=== PATIENT | male | born 1960 | race Caucasian/White ===

== ENCOUNTER 2019-08-29 01:16 | Emergency (ER) | payer BC ==
--- NOTE | 2019-08-29 03:51 | ER Document Report ---
ED Medical Screen (RME) - General Chief Complaint: Medical Clearance Stated Complaint: DETOX/[facility]ENT [facility] Notes: Apparently patient was at [facility] and was apparently had slow responses to questions of the staff there apparently had some "fecal incontine nce which patient denies but apparently did fall and hit his head and was sent in for medical clearance. Patient denies any complaints except a mild frontal headache TRAVEL OUTSIDE OF THE [place] IN LAST 30 DAYS: No - HPI Onset: Just prior to arrival Onset/Duration: Sudden. No: Gradual, Constant, Intermittent, Persistent, Waxing and waning, Better, Worse, Gone Quality of pain: Throbbing. denies: No pain, Achy, Burning, Cramping, Dull, Fullness, Pressure, Sharp, Stabbing, Other Severity: Mild Pain Level: 1 Associated Symptoms: denies: None, Abdominal pain, Allergy/hay fever, Body/muscle aches, Chest pain, Chills, Cough (productive), Cough (nonproductive), Diarrhea, Dizzy/lightheaded, Drooling, Dysuria, Earache, Fever, Headache, Hoarseness, Hurts to breath, Leg swelling, Nausea, Rhinorrhea, Shortness of breath, Sinus pain/drainage, Slow to respond, Sore throat, Sweating, Vaginal bleeding, Vomiting, Weakness, Other Exacerbated by: denies: Denies, Supine, Sitting, Standing, Movement, Walking, Coughing, Deep breathing, Food, Other - Related Data Frequency of alcohol use: Heavy Drug Abuse: None Allergies/Adverse Reactions: Iodine and Iodide Containing Produc Allergy (Verified 08/29/19 02:21) shellfish derived Allergy (Verified 08/29/19 02:21) Home Medications: none Past Medical History - Social History Chew tobacco use (# tins/day): No Frequency of alcohol use: binge drinker Drug Abuse: None Review of Systems - Review of Systems Constitutional: denies: No symptoms reported, See HPI, Chills, Diaphoresis, Fever, Malaise, Weakness, Other, Weight gain, Weight loss, Recent illness EENT: denies: No symptoms reported, See HPI, Eye pain, Eye discharge, Blurred vision, Tearing, Double vision, Ear pain, Ear discharge, Nose pain, Nose congestion, Nose discharge, Sinus pressure, Sinus discharge, Throat pain, Difficulty swallowing, Throat swelling, Mouth pain, Mouth swelling, Dental problem, Vertigo, Other Cardiovascular: denies: No symptoms reported, See HPI, Chest pain, Palpitations, Heart racing, Orthopnea, Dyspnea, Syncope, Dizziness, Lightheaded, Edema, Other, Paroxysmal Nocturnal Dysp Respiratory: denies: No symptoms reported, See HPI, Cough, Hurts to breathe, Hemoptysis, Short of breath, Sputum, Stridor, Wheezing, Other Gastrointestinal: denies: No symptoms reported, See HPI, Abdomen distended, Abdominal pain, Diarrhea, Nausea, Vomiting, Constipation, Blood streaked bowels, Poor appetite, Poor fluid intake, Blood in vomit, Black stools, Rectal bleeding, Last bowel movement, Fecal incontinence, Other Genitourinary: denies: No symptoms reported, See HPI, Burning, Dysuria, Discharge, Frequency, Flank pain, Hematuria, Incontinence, Pain, Urgency, Retention, Other Musculoskeletal: denies: No symptoms reported, See HPI, Back pain, Gout, Joint pain, Joint swelling, Muscle pain, Muscle stiffness, Neck pain, Deformity, Leg swelling, Ankle swelling, Other Neurological/Psychological: Headaches. denies: No symptoms reported, See HPI, Confusion, Dementia, Depression, Anxiety, Hallucinations, Sensory change, Homicidal ideation, Weakness, Gait changes, Loss of power, Paralysis, Seizure, Lost consciousness, Speech impairment, Numbness, Suicidal ideation, Tingling, Tremor, Other -: Yes All other systems reviewed and negative Physical Exam - Vital signs Vitals: Temp Pulse BP 97.5 F 87 145/85 H 08/29/19 01:24 08/29/19 01:24 08/29/19 01:24 Notes: PHYSICAL EXAMINATION: GENERAL: Well-appearing, well-nourished and in no acute distress. HEAD: Mild trauma to the frontal area of his scalp no ecchymosis noted. EYES: Pupils equal round and reactive to light, extraocular movements intact, sclera anicteric, conjunctiva are normal. ENT: nares patent, oropharynx clear without exudates. Moist mucous membranes. NECK: Normal range of motion, supple without lymphadenopathy LUNGS: Breath sounds clear to auscultation bilaterally and equal. No wheezes rales or rhonchi. HEART: Regular rate and rhythm without murmurs ABDOMEN: Soft, nontender, normoactive bowel sounds. No guarding, no rebound. No masses appreciated. EXTREMITIES: Normal range of motion, no pitting or edema. No cyanosis. NEUROLOGICAL: No focal neurological deficits. Moves all extremities spontaneously and on command. Patient does have a mild tremor when his hands are held up as he apparently is in detox from alcohol PSYCH: Normal mood, normal affect. SKIN: Warm, Dry, normal turgor, no rashes or lesions noted. Course - Vital Signs Vital signs: Temp Pulse Resp BP Pulse Ox 97.5 F 87 145/85 H 08/29/19 01:24 08/29/19 01:24 08/29/19 01:24 - Diagnostic Test Radiology reviewed: Image reviewed, Reports reviewed Doctor's Discharge - Discharge Clinical Impression: mild alcohol withdrawal Hematoma of scalp Qualifiers: Encounter type: initial encounter Qualified Code(s): S00.03XA - Contusion of scalp, initial encounter Condition: Good Disposition: OTHER Additional Instructions: Tylenol or Motrin for pain. Please proceed immediately to [facility] to continue with your alcohol detoxification. Return if worse
--- NOTE | 2019-08-29 05:35 | RADIOLOGY REPORT (SQ) ---
EXAM: CT head without IV contrast CLINICAL DATA: 59-year-old male with head injury, status post fall yesterday TECHNICAL DATA: Multiple axial CT images of the brain were performed followed by sagittal and coronal reconstructed images. The CT study is performed according to ALARA (as low as reasonably achievable) or ALARA/IMAGE GENTLY, with automatic adjustment of mA and/or kV according to patient size. Performed on: 08/29/2019 at 4:40 AM Comparisons: None. FINDINGS: There is no evidence of mass, acute mass effect or midline shift. There are no acute extra-axial fluid collections. There is no evidence of acute intracranial hemorrhage. The cerebral sulci and ventricles are normal in size and configuration. There are no focal abnormal areas of increased or decreased attenuation. There is trace mucosal thickening of the right maxillary sinus. The mastoid air cells are clear. The orbital contents are grossly unremarkable. No acute osseous abnormalities are identified. There is minimal left parietal scalp soft tissue swelling. IMPRESSION: 1. There is no evidence of acute intracranial pathology. 2. Minimal left parietal scalp soft tissue swelling.
[2019-08-29 07:43] VITALS: BP 125/72
== END 2019-08-29 07:44 | disposition other institution (70) ==
LOC: ER 01:16
DX: S00.03XA Contusion of scalp, initial encounter (principal); R15.9 Full incontinence of feces; F10.239 Alcohol dependence with withdrawal, unspecified; W19.XXXA Unspecified fall, initial encounter
CPT/HCPCS: 70450; 99285

== ENCOUNTER 2019-09-30 14:36 | Emergency (ER) | payer BC ==
[2019-09-30] MEDS ORDERED: NICOTINE 21 MG/24 HR PATCH.TD24 TD ONE (15:31)
--- NOTE | 2019-09-30 15:34 | ER Document Report ---
ED Medical Screen (RME) - General Chief Complaint: Alcohol Withdrawl Stated Complaint: ETOH Time Seen by Provider: 09/30/19 15:27 Notes: Patient is a 59-year-old male who presents to the emergency department for detox. Patient states that he went to [facility], but due to his blood alcohol level being so high, he was told to come here to the emergency department to be evaluated. He was referred to [facility] by his AA sponsor. Patient states that he d rinks at least 1 bottle of wine a day. He states that he drank a lot yesterday. His last drink was around 10:00 this morning. Patient also states that he smokes cigarettes. Exam: Patient smells of alcohol. I have greeted and performed a rapid initial assessment of this patient. A comprehensive ED assessment and evaluation of the patient, analysis of test results and completion of medical decision making process will be conducted by an additional ED providers. TRAVEL OUTSIDE OF THE [place] IN LAST 30 DAYS: No - Related Data Allergies/Adverse Reactions: Iodine and Iodide Containing Produc Allergy (Verified 09/30/19 15:25) shellfish derived Allergy (Verified 09/30/19 15:25) Past Medical History - Social History Chew tobacco use (# tins/day): Yes Frequency of alcohol use: Heavy Drug Abuse: None Physical Exam - Vital signs Vitals: Temp Pulse Resp BP Pulse Ox 98.0 F 100 18 150/79 H 95 09/30/19 14:45 09/30/19 14:45 09/30/19 14:45 09/30/19 14:45 09/30/19 14:45 Course - Vital Signs Vital signs: Temp Pulse Resp BP Pulse Ox 98.0 F 100 18 150/79 H 95 09/30/19 14:45 09/30/19 14:45 09/30/19 14:45 09/30/19 14:45 09/30/19 14:45
[2019-09-30 18:00] LABS: HEMATOCRIT 46.1 % (37.9-51.0); HEMOGLOBIN 15.9 g/dL (13.5-17.0); MEAN CORPUSCULAR HEMOGLOBIN 35.8 pg (27.0-33.4); MEAN CORPUSCULAR HGB CONC 34.5 g/dL (32.0-36.0); MEAN CORPUSCULAR VOLUME 104 fl (80-97); PLATELET COUNT 146 10^3/uL (150-450); RED BLOOD COUNT 4.44 10^6/uL (4.35-5.55); RED CELL DISTRIBUTION WIDTH 20.5 % (11.5-14.0); WHITE BLOOD COUNT 4.6 10^3/uL (4.0-10.5)
[2019-09-30 18:04] LABS: APPEARANCE,URINE CLEAR; BILIRUBIN,URINE NEGATIVE (NEGATIVE); COLOR,URINE AMBER; GLUCOSE, URINE 50 mg/dL (NEGATIVE); KETONES,URINE NEGATIVE (NEGATIVE); LEUKOCYTE ESTERASE,URINE NEGATIVE (NEGATIVE); NITRITE,URINE NEGATIVE (NEGATIVE); PROTEIN,URINE 100 mg/dL (NEGATIVE); URINE SPECIFIC GRAVITY 1.023
[2019-09-30 18:07] LABS: URINE AMPHETAMINES SCREEN NEGATIVE; URINE BARBITURATES SCREEN NEGATIVE; URINE BENZODIAZEPINES SCREEN UNCONFIRMED POSITIVE; URINE COCAINE SCREEN NEGATIVE; URINE MARIJUANA (THC) SCREEN NEGATIVE; URINE METHADONE SCREEN NEGATIVE; URINE PHENCYCLIDINE SCREEN NEGATIVE
[2019-09-30 18:10] LABS: ALBUMIN 4.2 g/dL (3.5-5.0); ALCOHOL 284 mg/dL (NONE DETECTED); ALKALINE PHOSPHATASE 77 U/L (38-126); ANION GAP 16 (5-19); ASPARTATE AMINO TRANSFERASE 207 U/L (17-59); BILIRUBIN,DIRECT 0.2 mg/dL (0.0-0.4); BILIRUBIN,TOTAL 0.4 mg/dL (0.2-1.3); BLOOD UREA NITROGEN 12 mg/dL (7-20); CALCIUM 9.1 mg/dL (8.4-10.2); CARBON DIOXIDE 29 mmol/L (22-30); CHLORIDE 100 mmol/L (98-107); GLUCOSE 115 mg/dL (75-110); POTASSIUM 3.7 mmol/L (3.6-5.0); TOTAL PROTEIN 7.9 g/dL (6.3-8.2)
[2019-09-30 18:11] LABS: ACETAMINOPHEN < 10 ug/mL (10-30); SALICYLATE < 1.0 mg/dL (2.0-20.0)
[2019-09-30 18:25] LABS: ABSOLUTE LYMPHOCYTES# (MANUAL) 1.7 10^3/uL (0.5-4.7); ABSOLUTE MONOCYTES # (MANUAL) 1.4 10^3/uL (0.1-1.4); BASOPHILS % (MANUAL) 0 % (0-2); EOSINOPHILS % (MANUAL) 3 % (0-6); LYMPHOCYTES % (MANUAL) 38 % (13-45); SEGMENTED NEUTROPHILS % (MAN) 28 % (42-78); TOTAL CELLS COUNTED 100
[2019-09-30 18:27] LABS: ANISOCYTOSIS 2+; MONOCYTES % (MANUAL) 31 % (3-13); PLATELET COMMENT DECREASED; POLYCHROMASIA SLIGHT; TOXIC GRANULATION 1+
[2019-09-30] MEDS: LORAZEPAM INJ 2 MG/1 ML VIAL IM PRN ×2 (18:58→19:05)
[2019-09-30] MEDS ORDERED: FOLIC ACID 1 MG TABLET PO ONE (20:08)
[2019-09-30] MEDS ORDERED: THIAMINE HCL 100 MG TABLET PO ONE (20:08)
--- NOTE | 2019-09-30 20:25 | EKG REPORT ---
SEVERITY:- ABNORMAL ECG - SINUS RHYTHM RIGHT BUNDLE BRANCH BLOCK NONSPECIFIC ST-T CHANGES- INFERIOR LEADS : Confirmed by: Edis Farris MD 30-Sep-2019 20:24:56
[2019-09-30] MEDS ORDERED: ACETAMINOPHEN 325 MG TABLET PO ONE (20:47)
[2019-09-30 20:56] VITALS: BP 128/72
--- NOTE | 2019-09-30 22:40 | ER Document Report ---
Entered by LANIE PEARCE SCRIBE 09/30/19 1804 Acting as scribe for:KHARI VOGT DO ED General - General Chief Complaint: Alcohol Withdrawl Stated Complaint: ETOH Time Seen by Provider: 09/30/19 15:27 Information source: Patient Notes: This 59-year-old male patient was sent in from the [facility] due to a blood alcohol level that was too high for their facility. Patient was there to detox from alcohol but they can only accept him once his blood alcohol level is below 200. Patient has no complaints at this time but states he thinks he is close to going into withdrawal. Patient states he has been a binge drinker, stating he starts with one pint a day, then one fifth a day, etc. TRAVEL OUTSIDE OF THE [place] IN LAST 30 DAYS: No - Related Data Allergies/Adverse Reactions: Iodine and Iodide Containing Produc Allergy (Verified 09/30/19 15:25) shellfish derived Allergy (Verified 09/30/19 15:25) Past Medical History - General Information source: Patient - Social History Smoking Status: Former Smoker Cigarette use (# per day): No Chew tobacco use (# tins/day): Yes Frequency of alcohol use: Heavy Drug Abuse: None Lives with: Family Family History: Reviewed & Not Pertinent Patient has suicidal ideation: No Patient has homicidal ideation: No Past Surgical History: Reports: Hx Oral Surgery - knee surgery Review of Systems - Review of Systems Constitutional: See HPI, Other - alcohol withdrawal EENT: No symptoms reported Cardiovascular: No symptoms reported Respiratory: No symptoms reported Gastrointestinal: No symptoms reported Genitourinary: No symptoms reported Male Genitourinary: No symptoms reported Musculoskeletal: No symptoms reported Skin: No symptoms reported Hematologic/Lymphatic: No symptoms reported Neurological/Psychological: No symptoms reported -: Yes All other systems reviewed and negative Physical Exam - Vital signs Vitals: Temp Pulse Resp BP Pulse Ox 98.0 F 100 18 150/79 H 95 09/30/19 14:45 09/30/19 14:45 09/30/19 14:45 09/30/19 14:45 09/30/19 14:45 Interpretation: Normal - General General appearance: Appears well, Alert - HEENT Head: Normocephalic, Atraumatic Eyes: Normal Pupils: PERRL Mucous membranes: Dry - Respiratory Respiratory status: No respiratory distress Chest status: Nontender Breath sounds: Normal Chest palpation: Normal - Cardiovascular Rhythm: Regular Heart sounds: Normal auscultation Murmur: No - Abdominal Inspection: Normal Distension: No distension Bowel sounds: Normal Tenderness: Nontender Organomegaly: No organomegaly - Back Back: Normal, Nontender - Extremities General upper extremity: Normal inspection, Nontender, Normal color, Normal ROM, Normal temperature General lower extremity: Normal inspection, Nontender, Normal color, Normal ROM, Normal temperature, Normal weight bearing. No: Alfonso's sign - Neurological Neuro grossly intact: Yes Cognition: Normal Orientation: AAOx4 Caren Coma Scale Eye Opening: Spontaneous Caren Coma Scale Verbal: Oriented [place] Coma Scale Motor: Obeys Commands [place] Coma Scale Total: 15 Speech: Normal Motor strength normal: LUE, RUE, LLE, RLE Sensory: Normal - Psychological Associated symptoms: Normal affect, Normal mood - Skin Skin Temperature: Warm Skin Moisture: Dry Skin Color: Normal Course - Re-evaluation Re-evalutation: 09/30/19 Patient with history of alcohol abuse. Went to rehab but told that his blood alcohol was too high so he had to come to the ER for clearance. Patient initially with some mild withdrawal symptoms for which she received Ativan. He is otherwise medically stable. He will be discharged and he is to go directly to [facility]. Understands and agrees with this plan. No suicidal ideation. No other complaints or concerns. Stable for discharge. - Vital Signs Vital signs: Temp Pulse Resp BP Pulse Ox 98.3 F 74 16 128/72 H 96 09/30/19 20:55 09/30/19 20:55 09/30/19 20:55 09/30/19 20:55 09/30/19 20:55 - Laboratory Result Diagrams: 09/30/19 17:23 09/30/19 17:23 Laboratory results interpreted by me: 09/30/19 09/30/19 09/30/19 17:23 17:23 17:23 MCV 104 H MCH 35.8 H RDW 20.5 H Plt Count 146 L Seg Neuts % (Manual) 28 L Monocytes % (Manual) 31 H Abs Neuts (Manual) 1.3 L Sodium 145.1 H Glucose 115 H AST 207 H Urine Protein 100 H Urine Glucose (UA) 50 H Urine Blood SMALL H Urine Urobilinogen 2.0 H Salicylates < 1.0 L Acetaminophen < 10 L Discharge - Discharge Clinical Impression: Alcohol abuse Alcohol withdrawal Qualifiers: Complication of substance-induced condition: uncomplicated Qualified Code(s): F10.230 - Alcohol dependence with withdrawal, uncomplicated Condition: Stable Disposition: OTHER Instructions: Alcohol Withdrawl (OM), Chronic Alcoholism (OM) Additional Instructions: Please go to [facility]. They are willing to accept you at this time. I personally performed the services described in the documentation, reviewed and edited the documentation which was dictated to the scribe in my presence, and it accurately records my words and actions.
[2019-10-01 13:41] LABS: PATH REVIEW PATHOLOGIST REVIEWED
== END 2019-09-30 20:56 | disposition other institution (70) ==
LOC: ER 14:36
DX: F10.230 Alcohol dependence with withdrawal, uncomplicated (principal); Z91.013 Allergy to seafood; Z87.891 Personal history of nicotine dependence
CPT/HCPCS: 93005; 36415; 80307 ×4; 85025; 80053; 81001; 93010; J2060; 96372; 99284